=== PATIENT | male | born 1995 | race Caucasian/White ===

== ENCOUNTER → 2021-08-21 | Outpatient (CLI) | payer BC ==
[2021-08-21 17:16] LABS: African American GFR (CKD) 119.6 (60.0-200.0); Non-African American GFR(CKD) 103.2 (60.0-200.0)
== END | disposition home or self-care (01) ==
LOC: LABWHC1 10:07
PROVIDERS: ATTEND Internal Medicine
DX: R80.9 Proteinuria, unspecified (principal)
CPT/HCPCS: 36415; 82565